=== PATIENT | female | born 1965 ===

== ENCOUNTER 2016-09-24 07:54 | Emergency (ER) | payer OTHER ==
[2016-09-24 08:11] VITALS: BMI 27.1
[2016-09-24 08:18] VITALS: BP 152/98; PULSE 82; RESP 18; TEMP 98.1; O2SAT 97
[2016-09-24 08:36] LABS: ADD MANUAL DIFF? NO
--- NOTE | 2016-09-24 08:37 | ED PDOC ---
Arrival/HPI - General Chief Complaint: Upper Extremity Problem/Injury Time Seen by Provider: 09/24/16 08:05 Historian: Patient - History of Present Illness Narrative History of Present Illness (Text): 09/24/16 08:32 Sujata Osborne is a 51 year old female, an employee of [employer] [place], presents to the emergency department for medical clearance following possible needle exposure. Patient was cleaning out the garbage here at [employer] [facility] [employer] [facility] [place] when she got pricked by something sharp from the garbage. She notes bleeding from the left 5th digit and states she washed her hands thoroughly under running water. Denies any foreign body sensation. Denies any other complaints. Tetanus is up to date. Time/Duration: 1/2 hour Symptom Onset: Sudden Symptom Course: Unchanged Severity Level: Mild Activities at Onset: Light Context: Work Past Medical History - Provider Review Nursing Documentation Reviewed: Yes - Infectious Disease Hx of Infectious Diseases: None - Reproductive Menopause: Yes - Endocrine/Metabolic Hx Endocrine Disorders: Yes Hx Hyperthyroidism: Yes - Psychiatric Hx Substance Use: No - Surgical History Hx Tubal Ligation: Yes - Anesthesia Hx Anesthesia: Yes Hx Anesthesia Reactions: No Hx Malignant Hyperthermia: No Family/Social History - Physician Review Nursing Documentation Reviewed: Yes Family/Social History: No Known Family HX Smoking Status: Former Smoker Hx Alcohol Use: No Hx Substance Use: No Allergies/Home Meds Allergies/Adverse Reactions: Allergies No Known Allergies Allergy (Verified 09/24/16 08:02) Home Medications: Home Meds Medication Instructions Recorded Confirmed methIMAzole [Tapazole] 15 mg PO DAILY 09/24/16 09/24/16 Review of Systems - Physician Review All systems were reviewed & negative as marked: Yes - Review of Systems Constitutional: Normal. absent: Fatigue, Fevers Respiratory: Normal. absent: SOB, Cough Cardiovascular: Normal. absent: Chest Pain Musculoskeletal: Other (needle exposure to left 5th digit. No foreign body ) Psychiatric: Normal Physical Exam Vital Signs Reviewed: Yes Vital Signs Temp Pulse Resp BP Pulse Ox 09/24/16 08:07 98.1 F 82 18 152/98 H 97 Temperature: Afebrile Blood Pressure: Normal Pulse: Regular Respiratory Rate: Normal Appearance: Positive for: Well-Appearing, Non-Toxic, Comfortable Pain Distress: None Mental Status: Positive for: Alert and Oriented X 3 - Systems Exam Upper Extremity: Present: Normal Inspection, Neurovascularly Intact, Other (No foreign body. needle exposure ). No: Cyanosis, Edema Skin: Present: Warm, Dry, Normal Color. No: Rashes Psychiatric: Present: Alert, Oriented x 3, Normal Insight, Normal Concentration Medical Decision Making ED Course and Treatment: 09/24/16 08:46 Impression: A 51 year old female who presents to the emergency department for evaluation of needle stick to fifth digit Plan: -- Labs -- Hepatitis B surface AM -- Hepatitis Panel -- HIV 1&2 antibody -- Rapid plasma reagin -- Urinalysis -- Reassess and disposition Progress Notes: 09/24/16 08:46 Addressed patient about the risks of HIV and Hepatitis due to possible exposure to bodily fluids. Offered post exposure prophylaxis, states she need some time to think about it. Patient wound was irrigated by EMT and bandaid was placed. 09/24/16 09:56 Patient agreed to take PEP for HIV prophylaxis. She understands the side affects of the medications. Labs were reviewed. Patient is stable for discharge. Will discharge patient home on 2 week prescription of Marilyn and Shanon. Patient is strongly advised to follow up with employee rocky within 2 days. - Lab Interpretations Lab Results: 09/24/16 08:30 09/24/16 08:30 Lab Results 09/24/16 08:50: Urine Color Yellow, Urine Appearance Clear, Urine pH 6.0, Ur Specific [place] 1.010, Urine Protein Negative, Urine Glucose (UA) Negative, Urine Ketones Negative, Urine Blood Trace-intact H, Urine Nitrate Negative, Urine Bilirubin Negative, Urine Urobilinogen 0.2, Ur Leukocyte Esterase Negative , Urine RBC 0 - 2, Urine WBC Negative 09/24/16 08:30: WBC 5.4, RBC 4.62, Hgb 14.1, Hct 39.6, MCV 85.7, MCH 30.5, MCHC 35.6, RDW 13.0, Plt Count 284, MPV 8.5, Gran % 50.4, Lymph % (Auto) 41.5 H, [place] % (Auto) 4.2, Eos % (Auto) 3.5, Baso % (Auto) 0.4, Gran # 2.73, Lymph # 2.3 , [place] # 0.2, Eos # 0.2, Baso # 0.02, Sodium 139, Potassium 4.1, Chloride 105, Carbon Dioxide 22, Anion Gap 16, BUN 17, Creatinine 0.8, Est GFR ( Amer) > 60, Est GFR (Non-Af Amer) > 60, Random Glucose 103, Calcium 9.6, Total Bilirubin 0.7, AST 36, ALT 43, Alkaline Phosphatase 109, Total Protein 8.3, Albumin 4.8, Globulin 3.6, Albumin/Globulin Ratio 1.3, Amylase 112 I have reviewed the lab results: Yes - Medication Orders Current Medication Orders: Discontinued Medications Emtricitabine/Tenofovir (Truvada 200 Mg-300 Mg) 1 tab PO STAT STA Stop: 09/24/16 09:51 Last Admin: 09/24/16 10:18 Dose: 1 TAB Raltegravir (Isentress) 400 mg PO STAT STA Stop: 09/24/16 09:53 Last Admin: 09/24/16 10:18 Dose: 400 MG - Scribe Statement The provider has reviewed the documentation as recorded by the Bebe Emery Provider Attestation: All medical record entries made by the Bebe were at my direction and personally dictated by me. I have reviewed the chart and agree that the record accurately reflects my personal performance of the history, physical exam, medical decision making, and the department course for this patient. I have also personally directed, reviewed, and agree with the discharge instructions and disposition. Disposition/Present on Arrival - Present on Arrival Any Indicators Present on Arrival: No History of DVT/PE: No History of Uncontrolled Diabetes: No Urinary Catheter: No History of Decub. Ulcer: No History Surgical Site Infection Following: None - Disposition Have Diagnosis and Disposition been Completed?: Yes Diagnosis: Needle stick injury Disposition: HOME/ ROUTINE Disposition Time: 10:19 Patient Plan: Discharge Condition: IMPROVED Discharge Instructions (ExitCare): Needle Stick Injuries (ED) Additional Instructions: [employer] Employee Regarding your Work Related Injury, you are instructed to do all of the following by next day: 1. Notify [employer] Employee Health Department of the sustained injury and arrange for any follow-up appointments if needed during the next business day. If the office is closed or no answer is received, please leave a detailed voice message. Message should include your full name, department and perianesthesia manager, date of injury, date of ED visit if applicable. Employee Health can be reached at [phone]. 2. If there is time lost, notify [employer] Human Resources Department of the work related injury the next day at [phone]. Ms Osborne, thank you for letting us take care of you today. Your provider was Dr. Bautista. You were treated for Needle Stick. The emergency medical care you received today was directed at your acute symptoms. If you were prescribed any medication, please fill it and take as directed. It may take several days for your symptoms to resolve. Return to the Emergency Department if your symptoms worsen, do not improve, or if you have any other problems. Please contact your doctor or call one of the physicians/clinics you have been referred to that are listed on the Patient Visit Information form that is included in your discharge packet. Bring any paperwork you were given at discharge with you along with any medications you are taking to your follow up visit. Our treatment cannot replace ongoing medical care by a primary care provider (PCP) outside of the emergency department. Thank you for allowing the [facility] team to be part of your care today. If you had an X-Ray or CT scan: A Radiologist will review the ED reading if any change in treatment is needed we will contact you. If you had a blood, urine, or wound culture: It will take several days for the results, if any change in treatment is needed we will contact you. If you had an STI test: It will take 48 hours for the results. Please call after 1 week if you have not heard back. Prescriptions: Raltegravir Potassium [Isentress] 400 mg PO BID #28 tab Emtricitabine/Tenofovir [Truvada 200 mg-300 mg Tablet] 1 each PO DAILY 14 Days Referrals: Clemente Ontiveros MD [Primary Care Provider] - Follow up with primary Forms: WORK NOTE
[2016-09-24 08:38] LABS: BASO # 0.02 K/mm3 (0.0-2.0); BASO % 0.4 % (0.0-3.0); EOS # 0.2 (0.0-0.7); EOS % 3.5 % (1.5-5.0); GRAN # 2.73 (1.4-6.5); GRAN % 50.4 % (50.0-68.0); HEMATOCRIT 39.6 % (36.0-48.0); LYMPH # 2.3 (1.2-3.4); LYMPH % 41.5 % (22.0-35.0); MEAN CELL VOLUME 85.7 fL (80.0-105.0); MEAN CORPUSCULAR HEMOGLOBIN 30.5 pg (25.0-35.0); MEAN CORPUSCULAR HGB CONC 35.6 g/dl (31.0-37.0); MEAN PLATELET VOLUME 8.5 fl (7.0-11.0); MONO # 0.2 (0.1-0.6); MONO % 4.2 % (1.0-6.0); PLATELET COUNT 284 10^3/uL (120.0-450.0); WHITE BLOOD COUNT 5.4 10^3/ul (4.5-11.0)
[2016-09-24 08:49] LABS: ALB/GLOB RATIO 1.3 (1.1-1.8); ALKALINE PHOSPHATASE 109 U/L (38-133); ALT/SGPT 43 U/L (7-56); AMYLASE 112 U/L (35-125); AST/SGOT 36 U/L (15-39); BILIRUBIN,TOTAL 0.7 mg/dL (0.2-1.3); BLOOD UREA NITROGEN 17 mg/dL (7-21); CALCIUM 9.6 mg/dL (8.4-10.5); CARBON DIOXIDE 22 mmol/L (21-33); CHLORIDE 105 mmol/L (98-107); GFR AFRICAN-AMERICAN > 60; GLUCOSE,RANDOM 103 mg/dL (70-110); POTASSIUM 4.1 mmol/L (3.6-5.0); SODIUM 139 mmol/L (132-148); TOTAL PROTEIN 8.3 g/dL (5.8-8.3)
[2016-09-24 09:04] LABS: URINE BILIRUBIN NEGATIVE (NEGATIVE); URINE BLOOD TRACE-INTACT (NEGATIVE); URINE GLUCOSE (UA) NEGATIVE (NEGATIVE); URINE KETONE NEGATIVE (NEGATIVE); URINE LEUKOCYTE ESTERASE NEGATIVE Leu/uL (NEGATIVE); URINE PROTEIN NEGATIVE mg/dL (<30 mg/dL); URINE UROBILINOGEN 0.2 E.U./dL (<1 E.U./dL)
[2016-09-24 09:05] LABS: URINE APPEARANCE CLEAR (CLEAR); URINE COLOR YELLOW (YELLOW)
[2016-09-24 09:29] LABS: URINE RBC 0 - 2 /hpf (0-2); URINE WBC NEGATIVE /hpf (0-6)
[2016-09-24] MEDS ORDERED: Emtricitabine-Tenofovir 200 mg-300 mg Tab PO STA (09:50)
== END 2016-09-24 10:19 | disposition home or self-care (01) ==
LOC: ED 07:54
DX: S61.237A Puncture wound without foreign body of left little finger without damage to nail, initial encounter (principal); W46.0XXA Contact with hypodermic needle, initial encounter; Y93.89 Activity, other specified; Y92.239 Unspecified place in hospital as the place of occurrence of the external cause; Y99.0 Civilian activity done for income or pay